=== PATIENT | female | born 1985 ===

== ENCOUNTER 2017-07-08 13:12 | Observation (INO) | payer BC, MEDICAID ==
[2017-07-08 14:20] LABS: BASO % 0.8 % (0.0-2.0); EOS # 0.1 K/uL (0.0-0.7); LYMPH # 1.6 K/uL (1.0-4.3); LYMPH % 42.7 % (20.0-40.0); MEAN CELL VOLUME 50.6 fl (81.0-99.0); MEAN CORPUSCULAR HEMOGLOBIN 13.2 pg (27.0-31.0); MEAN CORPUSCULAR HGB CONC 26.2 g/dL (33.0-37.0); MONO # 0.5 K/uL (0.0-0.8); MONO % 13.8 % (0.0-10.0); NEUT # 1.5 K/uL (1.8-7.0); NEUT % 40.7 % (50.0-75.0); NRBC % 0.2 % (0.0-0.0); RBC 4.9 Mil/uL (3.80-5.20); RED CELL DISTRIBUTION WIDTH 21.8 % (11.5-14.5); WHITE BLOOD COUNT 3.7 K/uL (4.8-10.8)
[2017-07-08 14:27] LABS: HEMOGLOBIN 6.5 g/dL (12.0-16.0)
[2017-07-08 14:28] LABS: ALB/GLOB RATIO 1.2 (1.0-2.1); ALBUMIN 4.1 g/dL (3.5-5.0); ALT/SGPT 30 U/L (9-52); AST/SGOT 25 U/L (14-36); BLOOD UREA NITROGEN 14 mg/dl (7-17); GFR AFRICAN-AMERICAN > 60; GFR NON-AFRICAN AMERICAN > 60
--- NOTE | 2017-07-08 17:26 | ED PDOC ---
HPI: General Adult Time Seen by Provider: 07/08/17 13:24 Chief Complaint (Nursing): Dizziness/Lightheaded Chief Complaint (Provider): Lightheadedness, dizziness, tired History Per: Patient History/Exam Limitations: no limitations Onset/Duration Of Symptoms: Days Have you had recent travel within the past 21 days to any of the following countries: [place], [place], [place] or [place]?: No Current Symptoms Are (Timing): Still Present Additional Complaint(s): Pt reports symptoms for a month. Pt states that she was seen in the office and told to come to ER for evaluation. PT denies blood in stool or black stool. Pt reports normal menses and states heres is due next week. PT reports abdominal pain, intermittent for 2-3 days. Past Medical History Reviewed: Historical Data, Nursing Documentation, Vital Signs Vital Signs: Last Vital Signs Temp 98.4 F 07/08/17 13:15 Pulse 92 H 07/08/17 13:15 Resp 16 07/08/17 13:15 BP 117/72 07/08/17 13:15 Pulse Ox 100 07/08/17 13:15 - Medical History PMH: Anemia - Surgical History Surgical History: No Surg Hx - Family History Family History: States: Unknown Family Hx - Living Arrangements Living Arrangements: With Family - Social History Current smoker - smoking cessation education provided: No Alcohol: None Drugs: Denies - Immunization History Hx Tetanus Toxoid Vaccination: No Hx Influenza Vaccination: Yes Hx Pneumococcal Vaccination: No - Home Medications Home Medications: Ambulatory Orders Medication Instructions Recorded Vit#96/Ferrous Fum/FA 1 tab PO DAILY 11/11/14 [] Ferrous Sulfate [Feosol] 324 mg PO BID #0 ect 11/15/14 oxyCODONE/Acetaminophen [Percocet 1 ea PO Q4 #30 tab 11/15/14 5/325 mg Tab] - Allergies Allergies/Adverse Reactions: Allergies Allergy/AdvReac Type Severity Reaction Status Date / Time No Known Allergies Allergy Unverified 11/11/14 07:32 Review of Systems ROS Statement: Except As Marked, All Systems Reviewed And Found Negative Constitutional: Positive for: Weakness. Negative for: Fever, Chills Cardiovascular: Positive for: Light Headedness. Negative for: Chest Pain, Palpitations Neurological: Positive for: Dizziness Physical Exam - Reviewed Nursing Documentation Reviewed: Yes Vital Signs Reviewed: Yes - Physical Exam Appears: Positive for: Well, Non-toxic, No Acute Distress Head Exam: Positive for: ATRAUMATIC, NORMAL INSPECTION, NORMOCEPHALIC Skin: Positive for: Normal Color, Warm, DRY Eye Exam: Positive for: Normal appearance ENT: Positive for: Normal ENT Inspection Neck: Positive for: Normal, Painless ROM Cardiovascular/Chest: Positive for: Regular Rate, Rhythm Respiratory: Positive for: Normal Breath Sounds. Negative for: Accessory Muscle Use, Respiratory Distress Back: Positive for: Normal Inspection Extremity: Positive for: Normal ROM Neurologic/Psych: Positive for: Alert, Oriented - Laboratory Results Result Diagrams: 07/08/17 14:14 07/08/17 14:14 - ECG O2 Sat by Pulse Oximetry: 100 Medical Decision Making Medical Decision Making: Discussed labs, negative occult blood with Filiberto Joyce NP. 2 units of blood ordered. Consent obtained. Disposition - Clinical Impression Clinical Impression: Anemia - Patient ED Disposition Is Patient to be Admitted: Yes - Disposition Disposition Time: 16:28 Condition: STABLE - Pt Status Changed To: Hospital Disposition Of: Observation - Admit Certification Admit to Inpatient:: Telemetry - POA Present On Arrival: None
[2017-07-09 00:20] VITALS: RESP 18; O2SAT 100
--- NOTE | 2017-07-09 07:45 | CP.PCM.HP ---
History of Present Illness - History of Present Illness History of Present Illness: pt admitted for syptomatic anemia w/ hgb 6.5. pt c/o dizziness, palpitation on/ off-not at present, weakness. no f/c, n/v/d. no flu s/s. no recent bleeding. hemocult in er negative. less pale than yesterday in office Present on Admission - Present on Admission Any Indicators Present on Admission: No Past Patient History - Past Medical History & Family History Past Medical History?: Yes - Past Social History Smoking Status: Never Smoked - CARDIAC Hx Cardiac Disorders: No - PULMONARY Hx Respiratory Disorders: No - NEUROLOGICAL Hx Neurological Disorder: No - HEENT Hx HEENT Problems: No - RENAL Hx Chronic Kidney Disease: No - HEMATOLOGICAL/ONCOLOGICAL Hx Blood Disorders: Yes Hx Anemia: Yes - INTEGUMENTARY Hx Dermatological Problems: No - MUSCULOSKELETAL/RHEUMATOLOGICAL Hx Musculoskeletal Disorders: No Hx Falls: No - GASTROINTESTINAL Hx Gastrointestinal Disorders: No - GENITOURINARY/GYNECOLOGICAL Hx Genitourinary Disorders: No - PSYCHIATRIC Hx Psychophysiologic Disorder: No Hx Substance Use: No - SURGICAL HISTORY Hx Surgeries: Yes Hx Section: Yes - ANESTHESIA Hx Anesthesia: Yes Hx Anesthesia Reactions: No Meds Allergies/Adverse Reactions: Allergies Allergy/AdvReac Type Severity Reaction Status Date / Time No Known Allergies Allergy Unverified 11/11/14 07:32 Physical Exam - Constitutional Appears: Well, Non-toxic, No Acute Distress - Head Exam Head Exam: ATRAUMATIC, NORMAL INSPECTION, NORMOCEPHALIC - Eye Exam Eye Exam: EOMI, Normal appearance, PERRL Pupil Exam: NORMAL ACCOMODATION, PERRL - ENT Exam ENT Exam: Mucous Membranes Moist, Normal Exam - Neck Exam Neck exam: Positive for: Normal Inspection - Respiratory Exam Respiratory Exam: Clear to Auscultation Bilateral, NORMAL BREATHING PATTERN - Cardiovascular Exam Cardiovascular Exam: REGULAR RHYTHM, RRR, +S1, +S2 - GI/Abdominal Exam GI & Abdominal Exam: Normal Bowel Sounds, Soft. absent: Tenderness - Extremities Exam Extremities exam: Positive for: full ROM, normal capillary refill, normal inspection, pedal pulses present - Back Exam Back exam: NORMAL INSPECTION - Neurological Exam Neurological exam: Alert, CN II-XII Intact, Normal Gait, Oriented x3, Reflexes Normal - Psychiatric Exam Psychiatric exam: Normal Affect, Normal Mood - Skin Skin Exam: Dry, Intact, Normal Color, Warm Results - Vital Signs Recent Vital Signs: Last Vital Signs Temp 98.2 F 07/09/17 04:00 Pulse 57 L 07/09/17 04:00 Resp 18 07/09/17 04:00 BP 103/63 07/09/17 04:00 Pulse Ox 100 07/09/17 04:00 - Labs Result Diagrams: 07/08/17 14:14 07/08/17 14:14 Labs: Laboratory Results - last 24 hr 07/08/17 07/08/17 07/08/17 14:10 14:14 14:14 WBC 3.7 L D RBC 4.90 Hgb 6.5 L* Hct 24.8 L MCV 50.6 L D MCH 13.2 L MCHC 26.2 L RDW 21.8 H Plt Count 237 D MPV 9.0 Neut % (Auto) 40.7 L Lymph % (Auto) 42.7 H [place] % (Auto) 13.8 H Eos % (Auto) 2.0 Baso % (Auto) 0.8 Neut # (Auto) 1.5 L Lymph # (Auto) 1.6 [place] # (Auto) 0.5 Eos # (Auto) 0.1 Baso # (Auto) 0.0 Sodium 143 Potassium 3.6 Chloride 105 Carbon Dioxide 25 Anion Gap 17 BUN 14 Creatinine 0.8 Est GFR ( Amer) > 60 Est GFR (Non-Af Amer) > 60 Random Glucose 96 Calcium 9.0 Total Bilirubin 0.5 AST 25 ALT 30 Alkaline Phosphatase 45 Total Protein 7.6 Albumin 4.1 Globulin 3.5 Albumin/Globulin Ratio 1.2 Stool Occult Blood Blood Type A POSITIVE Antibody Screen Negative Crossmatch See Detail BBK History Checked Patient has bt 07/08/17 14:15 WBC RBC Hgb Hct MCV MCH MCHC RDW Plt Count MPV Neut % (Auto) Lymph % (Auto) [place] % (Auto) Eos % (Auto) Baso % (Auto) Neut # (Auto) Lymph # (Auto) [place] # (Auto) Eos # (Auto) Baso # (Auto) Sodium Potassium Chloride Carbon Dioxide Anion Gap BUN Creatinine Est GFR ( Amer) Est GFR (Non-Af Amer) Random Glucose Calcium Total Bilirubin AST ALT Alkaline Phosphatase Total Protein Albumin Globulin Albumin/Globulin Ratio Stool Occult Blood Negative Blood Type Antibody Screen Crossmatch BBK History Checked Assessment & Plan (1) Symptomatic anemia Assessment and Plan: s/p 2 units prbc f/u am labs likely dc today for f/u w/ her heme/onc nad weekly venofer. Status: Acute Decision To Admit - Pt Status Changed To: Hospital Disposition Of: Observation - . Bed Request Type: Telemetry Admitting Physician: Max Zimmerman
[2017-07-09 08:09] VITALS: BP 107/68; PULSE 63; TEMP 98.3
[2017-07-09 08:38] LABS: BASO % 0.6 % (0.0-2.0); EOS # 0.2 K/uL (0.0-0.7); EOS % 2.8 % (0.0-4.0); HEMOGLOBIN 8.8 g/dL (12.0-16.0); LYMPH % 36.3 % (20.0-40.0); MEAN CELL VOLUME 56.5 fl (81.0-99.0); MEAN CORPUSCULAR HEMOGLOBIN 15.8 pg (27.0-31.0); MEAN CORPUSCULAR HGB CONC 28.1 g/dL (33.0-37.0); MONO # 0.6 K/uL (0.0-0.8); MONO % 11.2 % (0.0-10.0); NEUT # 2.7 K/uL (1.8-7.0); NEUT % 49.1 % (50.0-75.0); NRBC % 0.2 % (0.0-0.0); RBC 5.54 Mil/uL (3.80-5.20); RED CELL DISTRIBUTION WIDTH 30.8 % (11.5-14.5); WHITE BLOOD COUNT 5.4 K/uL (4.8-10.8)
[2017-07-09 09:26] LABS: IRON 55 ug/dL (37-170)
[2017-07-09 09:33] LABS: FERRITIN 4.6 ng/Ml (6.24-137.0)
[2017-07-09 09:35] LABS: % IRON SATURATION 13 % (20-55); TOTAL IRON BINDING CAPACITY 415 ug/dL (250-450)
[2017-07-09 09:41] LABS: ALB/GLOB RATIO 1.1 (1.0-2.1); ALBUMIN 3.8 g/dL (3.5-5.0); ALT/SGPT 33 U/L (9-52); AST/SGOT 26 U/L (14-36); BLOOD UREA NITROGEN 9 mg/dl (7-17); CALCIUM 8.9 mg/dL (8.4-10.2); GFR AFRICAN-AMERICAN > 60; GFR NON-AFRICAN AMERICAN > 60
--- NOTE | 2017-07-11 15:35 | CP.PCM.DIS ---
Provider - Provider Date of Admission: 07/08/17 16:55 Attending physician: Max Zimmerman MD Time Spent in preparation of Discharge (in minutes): 15 Diagnosis - Discharge Diagnosis (1) Symptomatic anemia Status: Acute Hospital Course - Lab Results Lab Results: Most Recent Lab Values WBC 5.4 K/uL (4.8-10.8) 07/09/17 08:01 RBC 5.54 Mil/uL (3.80-5.20) H 07/09/17 08:01 Hgb 8.8 g/dL (12.0-16.0) L D 07/09/17 08:01 Hct 31.3 % (34.0-47.0) L 07/09/17 08:01 MCV 56.5 fl (81.0-99.0) L D 07/09/17 08:01 MCH 15.8 pg (27.0-31.0) L 07/09/17 08:01 MCHC 28.1 g/dL (33.0-37.0) L 07/09/17 08:01 RDW 30.8 % (11.5-14.5) H 07/09/17 08:01 Plt Count 213 K/uL (130-400) 07/09/17 08:01 MPV 9.0 fl (7.2-11.7) 07/09/17 08:01 Neut % (Auto) 49.1 % (50.0-75.0) L 07/09/17 08:01 Lymph % (Auto) 36.3 % (20.0-40.0) 07/09/17 08:01 [place] % (Auto) 11.2 % (0.0-10.0) H 07/09/17 08:01 Eos % (Auto) 2.8 % (0.0-4.0) 07/09/17 08:01 Baso % (Auto) 0.6 % (0.0-2.0) 07/09/17 08:01 Neut # (Auto) 2.7 K/uL (1.8-7.0) 07/09/17 08:01 Lymph # (Auto) 2.0 K/uL (1.0-4.3) 07/09/17 08:01 [place] # (Auto) 0.6 K/uL (0.0-0.8) 07/09/17 08:01 Eos # (Auto) 0.2 K/uL (0.0-0.7) 07/09/17 08:01 Baso # (Auto) 0.0 K/uL (0.0-0.2) 07/09/17 08:01 Sodium 142 mmol/l (132-148) 07/09/17 08:01 Potassium 3.8 MMOL/L (3.6-5.0) 07/09/17 08:01 Chloride 107 mmol/L (98-107) 07/09/17 08:01 Carbon Dioxide 23 mmol/L (22-30) 07/09/17 08:01 Anion Gap 16 (10-20) 07/09/17 08:01 BUN 9 mg/dl (7-17) 07/09/17 08:01 Creatinine 0.7 mg/dl (0.7-1.2) 07/09/17 08:01 Est GFR ( Amer) > 60 07/09/17 08:01 Est GFR (Non-Af Amer) > 60 07/09/17 08:01 Random Glucose 78 mg/dL (65-105) 07/09/17 08:01 Calcium 8.9 mg/dL (8.4-10.2) 07/09/17 08:01 Iron 55 ug/dL (37-170) 07/09/17 08:01 TIBC 415 ug/dL (250-450) 07/09/17 08:01 % Saturation 13 % (20-55) L 07/09/17 08:01 Transferrin 308.27 mg/dL (206-381) 07/09/17 08:01 Ferritin 4.6 ng/Ml (6.24-137.0) L 07/09/17 08:01 Total Bilirubin 1.2 mg/dl (0.2-1.3) 07/09/17 08:01 AST 26 U/L (14-36) 07/09/17 08:01 ALT 33 U/L (9-52) 07/09/17 08:01 Alkaline Phosphatase 43 U/L (38-126) 07/09/17 08:01 Total Protein 7.2 G/DL (6.3-8.2) 07/09/17 08:01 Albumin 3.8 g/dL (3.5-5.0) 07/09/17 08:01 Globulin 3.4 gm/dL (2.2-3.9) 07/09/17 08:01 Albumin/Globulin Ratio 1.1 (1.0-2.1) 07/09/17 08:01 Stool Occult Blood Negative (NEGATIVE) 07/08/17 14:15 Blood Type A POSITIVE 07/08/17 14:10 Antibody Screen Negative 07/08/17 14:10 Crossmatch See Detail 07/08/17 14:10 BBK History Checked Patient has bt 07/08/17 14:10 - Hospital Course Hospital Course: 2 units prbc Discharge Exam - Head Exam Head Exam: ATRAUMATIC, NORMAL INSPECTION, NORMOCEPHALIC Discharge Plan - Follow Up Plan Condition: STABLE Disposition: HOME/ ROUTINE Additional Instructions: Follow up with Dr. Zimmerman at the office in 2 days. final dx-symptomatic anemia f/u rmg monday, rted prn, meds per med rec outpt heme/onc
== END 2017-07-09 11:03 | disposition home or self-care (01) ==
LOC: H.ER 13:12 → H.ERHOLD 16:55 → H.TEL 22:34
PROVIDERS: ADMIT Family Medicine; ATTEND Family Medicine
DX: D64.9 Anemia, unspecified (principal); R10.9 Unspecified abdominal pain; R42 Dizziness and giddiness; R53.83 Other fatigue
CPT/HCPCS: 36415; 36430; 80053; 81025; 82728; 84466; 85025; 86850; 86900; 86920; 96374; 99285; C9113; G0328; G0378; P9051